=== PATIENT | female | born 1985 | race Caucasian/White ===

== ENCOUNTER 2017-11-20 08:22 | Day surgery (SDC) | payer OTHER, SELFPAY ==
[2017-11-13 13:26] VITALS: BMI 32.5
[2017-11-20] VITALS (8 sets, daily range): BP systolic 91–121; BP diastolic 44–79; PULSE 61–75; RESP 14–18; TEMP 36.3–36.6; O2SAT 94–99; BMI 32.5
--- NOTE | 2017-11-20 | PATH_ITS ---
[facility] Accession Number: [id number] . 01 Material submitted: . UTERUS AND BILATERAL FALLOPIAN TUBES . 02 Diagnosis: Supracervical Hysterectomy Specimen with Bilateral Fallopian Tubes: Proliferative endometrium with mild disorderd maturation and changes of glandular and stromal breakdown, negative for atypia. Fallopian tubes unremarkable. MRV/11/22/2017 . 02 Electronically signed: . Carrillo Casas MD, Pathologist NPI- [id number] . 01 Gross description: . Received in formalin, labeled 1. Uterus and bilateral fallopian tubes, is an upper uterine body (58 grams, 5.5 x 4.3 x 3.3 cm) with an attached fimbriated fallopian tube (length-5.5 cm, diameter-0.6 cm) and a detached fimbriated fallopian tube (length-6.2 cm, diameter-0.5 cm). The cervix and ovaries are absent. The specimen cannot be oriented as to anterior and posterior. The endometrium (average thickness-0.1 cm) is red-brown smooth and flat. The myometrium (thickness-1.7 cm) is hui-white and unremarkable. The serosa is pale hui, smooth and shiny. The fallopian tubes have red-brown smooth shiny serosa and pale hui unremarkable lumens. Section code: (A1, A2) endomyometrium; (A3, A4) endomyometrium, opposite side; (A5) attached fallopian tube, serially sectioned, office machines sales representative; (A6) attached fimbria, bivalved, entirely submitted; (A7) detached fallopian tube, serially sectioned, office machines sales representative; (A8) detached fimbria, bivalved, entirely submitted. ([id number]) /MRV . 02 Pathologist provided ICD-10: N92.0 . 02 CPT . 330147 Performed at: 01 [facility] [address] [place] [address], [place], [place] [id number] MD Keshav Isaacs MD Phone: [phone] Performed at: 02 [facility] [address] [place], [place] [id number] MD Toribio Brito MD Phone: [phone]
[2017-11-20] MEDS: LACTATED RINGERS 1,000 ML 100 ML IV ×2 (08:50→12:22)
--- NOTE | 2017-11-20 09:51 | PM.PREOP ---
Pre-operative Note Interval Note Pre-op Check: History & Physical Reviewed by Physician
[2017-11-20] MEDS: CEFAZOLIN 2 GM/100 ML FROZ.PIGGY IV (10:09)
[2017-11-20] MEDS: BUPIVACAINE 0.5% W/ EPI (PF) 30 ML VIAL INJ (12:04)
[2017-11-20] MEDS: ROPIVACAINE 0.2% PF 2 MG/ML 10ML AMP 20 ML INJ (12:05)
--- NOTE | 2017-11-20 13:32 | SUR.PHASEII ---
pt. up to void at this time, assisted pt. into w/c pt. transferred independently without problems. No bleeding noted on eliana pad. Pt. rates pain as minimal at this time, will still medicate with one oxycodone/APAP prior to d/c home.
[2017-11-20] MEDS: OXYCODONE/ACETAMINOPHEN 5/325 TABLET 1 TAB PO (13:42)
--- NOTE | 2017-11-21 15:40 | P.OP_ITS ---
Operative Date/Time/Diagnoses Date of procedure: 11/20/17 Time of procedure: 12:36 Procedure: Procedures Operation Date: 11/20/17 09:45 Actual Procedures Side Surgeon p Laparoscopic Supracervical Hysterectomy w/Bilat Salpingectomy Yeny Polo MD Indications: Menorrhagia Surgeon: Yeny Polo Benefits Counselor: Fátima Sena Anesthesia Type: General Operative Notes Findings: 8 week size anteverted uterus Normal tubes and ovaries Normal liver and gallbladder Normal appendix Closure Type: primary Specimen(s): left tube, right tube and uterus Applied: catheter (Removed at the end of the case) Estimated blood loss (mL): 100 Blood products transfused: none Procedure in detail: The patient was taken to the operating room where she was placed in the dorsal supine position. After adequate general endotracheal anesthesia was achieved, she was placed in the dorsal lithotomy position, and prepped and draped in the usual sterile fashion. A timeout was performed. A bivalve speculum was placed into the vagina and the anterior lip of the cervix grasped with a single-tooth tenaculum. The cervical os was sequentially dilated until the ZUMI uterine manipulator could pass easily into the endometrial cavity. The single-tooth tenaculum was removed from the anterior lip of the cervix, and the bivalve speculum was removed from the vagina. Attention was then turned to the abdomen where 6 mL of half percent Marcaine with epinephrine were injected in the umbilical fold. A 5 mm incision was made. The Verhees needle was placed into the peritoneal cavity, and its placement confirmed by aspiration and drop test. The Verhees needle was removed. A 5 mm trocar was placed without difficulty. 2 other incisions were made midway between the pubic symphysis and umbilicus after 5 mL of half percent Marcaine with epinephrine were injected. These were 5 mm incisions. Two 5 mm trochars were placed under direct visualization. The right tube was grasped with an atraumatic grasper. Using the plasma kinetic with settings of 40 W the mesosalpinx was cauterized and cut all the way down to the cornua of the uterus. The cornua of the uterus was then grasped with an atraumatic grasper. The utero-ovarian ligaments were cauterized and cut. The round ligament and broad ligament was cauterized and cut with plasma kinetic. Hemostasis was achieved. The bladder flap was created using the plasma kinetic with cautery and cut group home across. The uterine arteries on the right side were extensively cauterized with plasma kinetic. All of this was repeated on the left side. The remainder of the bladder flap was created using the plasma kinetic, and the bladder taken down off the lower uterine segment and cervix. Using the [place], the cervix was amputated from the uterus 2 cm above the uterosacral ligaments, after the ZUMI uterine manipulator was removed from the uterus. There was a small amount of bleeding noted from the posterior edge of the cervix, and this was cauterized for hemostasis. A sponge stick was placed into the vagina. 6 mL of half percent Marcaine with epinephrine were injected above the pubic symphysis. A 12 mm trocar was placed. An Endobag was placed through the suprapubic trocar and the uterus placed into the Endobag. The trocar was removed. The Endobag was removed from the peritoneal cavity with the uterus and tubes inside. The pelvis was copiously irrigated with warm normal saline. No bleeding was noted. The instruments were removed from the abdomen. The CO2 was allowed to escape. The suprapubic incision was closed on the fascia with 0 Vicryl. The subcutaneous layer was closed with 3 simple interrupted sutures with 3 0 Vicryl. All of the incisions were closed with 4-0 undyed Vicryl in a subcuticular fashion. Steri-Strips, 2 x 2, and op sites were placed. The moistened sponge stick was removed from the vagina. Sponge, lap, and instrument counts were correct x-2. The patient tolerated the procedure well, was taken to PACU in stable condition. Complications: none Post-operative Condition: stable Disposition: PACU Plan for aftercare: Home after recovery
== END 2017-11-20 13:46 | disposition home or self-care (01) ==
LOC: OR 08:23 → AC 12:06
PROVIDERS: Family Provider Family Medicine; PCP Family Medicine; Visit Provider Obstetrics & Gynecology
PROC: 0UT94ZL Resection of Uterus, Supracervical, Percutaneous Endoscopic Approach (ICD-10-PCS; CPT 58542; principal; 2017-11-20 09:45)
DX: N92.0 Excessive and frequent menstruation with regular cycle (principal); N94.6 Dysmenorrhea, unspecified; E06.3 Autoimmune thyroiditis; F32.9 Major depressive disorder, single episode, unspecified
CPT/HCPCS: 58542; J0690; J1100; J1885; J2250; J2405; J2704; J2795; J3010

== ENCOUNTER 2017-11-24 18:28 | Emergency (ER) | payer OTHER, SELFPAY ==
[2017-11-24 19:03] LABS: Add Manual Diff / Slide Review NO; Basophils Percent Auto 0.6 % (0-2); Eosinophils Percent Auto 1.7 % (2-4); Hematocrit 40.2 % (36-46); Hemoglobin 13.4 g/dL (12.0-16.0); Lymphocytes Percent Auto 26.7 % (25-40); Mean Corpuscular HGB Conc 33.4 % (30-36); Mean Corpuscular Hemoglobin 29.9 PG (26-34); Mean Corpuscular Volume 89.6 fL (80-100); Monocytes Percent Auto 6.9 % (3-14); Neutrophils Absolute Auto 5400 /uL (3000-5900); Neutrophils Percent Auto 64.1 % (50-75); Platelet Count 324 X10^3/uL (150-400); Red Blood Cell Count 4.48 X10^6/uL (4.0-5.2); Red Cell Distribution Width 13.2 % (11.6-14.8); White Blood Cell Count 8.5 X10^3/uL (4.5-11.0)
--- NOTE | 2017-11-24 19:07 | ED.CHESTPAIN ---
HPI - Chest Pain General Chief Complaint: Chest Pain Stated Complaint: CHEST TIGHTNESS/HEAVINESS POST SURGERY Time Seen by Provider: 11/24/17 18:36 Source: patient and family Mode of arrival: ambulatory Limitations: no limitations History of Present Illness HPI narrative: 32-year-old female presents with a chief complaint of what she describes as bubbles under her diaphragm. She complains some vague discomfort in her epigastrium and states she has pain that radiates to her left shoulder. She does not feel short of breath and is not dizzy nor weak or lightheaded. She called the on-call OB casting assistant whom recommends patient be evaluated in the emergency department. Patient is 2 days removed from a laparoscopic hysterectomy with bilateral salpingo-oophorectomy complaint: chest pain Onset (ago): day(s) Duration: intermittent and improved Pain location: substernal Severity: moderate Quality: aching Pain radiation: LUE Relieving factors: nothing Exacerbating factors: nothing Context: recent surgery Treatments prior to arrival chest pain: none Related Data Home Medications Medication Instructions Recorded Confirmed [OTC MIGRAINE] 1 tab PO DIRECTED PRN #0 03/01/16 11/20/17 levothyroxine 75 mcg tablet 75 mcg PO DAILY 10/19/17 11/20/17 Previous Rx's Medication Instructions Recorded oxycodone-acetaminophen 5 mg-325 1 tab PO Q6H PRN #14 tab 11/14/17 mg tablet oxycodone-acetaminophen [Percocet] 2 tab PO Q4-6H PRN #30 tab 11/20/17 Allergies Allergy/AdvReac Type Severity Reaction Status Date / Time sertraline [SERTRALINE] Allergy Unknown cant move Verified 11/20/17 08:41 legs Review of Systems Review of Systems All systems reviewed & are unremarkable except as noted in HPI and below Constitutional Denies chills, Denies fever(s), Denies lethargy and Denies weakness Eyes Denies change in vision, Denies eye discharge, Denies irritation and Denies loss of vision ENT Ears, Nose, Mouth, and Throat: Denies change in voice, Denies neck pain and Denies sore throat Cardiovascular Reports chest pain, Denies irregular heart rhythm, Denies lightheadedness, Denies palpitations, Denies dyspnea, Denies dyspnea on exertion and Denies orthopnea Respiratory Denies cough, Denies dyspnea, Denies dyspnea on exertion and Denies wheezing Gastrointestinal Gastrointestinal: Denies abdominal pain, Denies change in bowel habits, Denies diarrhea, Denies nausea and Denies vomiting Genitourinary Denies hematuria, Denies flank pain, Denies urinary incontinence and Denies urinary urgency Musculoskeletal Denies neck pain Integumentary/Breasts Denies pruritus, Denies erythema, Denies rash and Denies wounds Neurologic Denies confusion, Denies loss of vision and Denies weakness Psychiatric Denies anxiety, Denies confusion, Denies depression, Denies homicidal ideation and Denies suicidal ideation Endocrine Denies palpitations Hematologic/Lymphatic Denies easy bruising Allergic/Immunologic Denies wheezing PFSH Medical History Depression (Chronic) 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 Initial Vital Signs Initial Vital Signs: Vital Signs Pulse Rate 71 11/24/17 21:13 Respiratory Rate 19 11/24/17 21:13 Blood Pressure 125/73 H 11/24/17 21:13 Pulse Oximetry 99 11/24/17 21:13 Const General: cooperative and well developed Nutritional Appearance: well nourished Orientation: alert, awake, oriented x3 and not confused [facility] Head: normocephalic and atraumatic Ears: external ears normal and TM's normal bilaterally Nose: external nose normal and No nasal discharge Face and sinus: sinuses nontender, face symmetric, no sinus tenderness and No dry mucous membranes Mouth: oral mucosae normal and moist mucous membranes Teeth and gingiva: dentition normal Throat: tonsils normal and uvula midline Eyes General: appearance normal, both eyes and all related structures Eyelids: eyelids normal Conjunctivae: conjunctivae normal Sclera: sclerae normal Pupils: PERRL EOM: EOM intact bilaterally Chest Chest: normal inspection of the chest Resp Effort & Inspection: normal respiratory effort, able to speak in complete sentences, no respiratory distress and no use of accessory muscles Auscultation: clear to auscultation bilaterally, no rales, no rhonchi and no wheezes GI Inspection: non-distended Palpation: soft, no hepatosplenomegaly, No guarding, No pulsatile mass and No tender Auscultation: normal bowel sounds Other: Incisions are clean, dry and intact Back/Spine/Pelvis Back: No CVA tenderness Cervical Spine: cervical ROM normal and No pain with cervical ROM Thoracic/Lumbar Spine: thoracic and lumbar spine normal to inspection Neuro General: alert, oriented x3, gait normal and no focal motor deficits Speech: speech normal Course Orders Ordered: ED Orders 11/24/17 18:53 Complete Blood Count AUTO DIFF Stat Comprehensive Metabolic Panel Stat Lipase Stat Troponin & CK Cardiac Panel Stat 11/24/17 19:38 XR acute abdomen series Stat Discontinued Medications Sodium Chloride (Normal Saline 0.9%) 1,000 mls @ 150 mls/hr IV CONT JOHANN Last Infusion: 11/24/17 21:14 Dose: 0 mls/hr Admin: 11/24/17 19:11 Dose: 150 mls/hr Consultations Consultation #1: Upon receipt of labs and imaging I placed a call to Dr. Mathew to discuss this case. We sure the opinion that the patient's symptoms and molds likely due to the expected free air under the diaphragm after laparoscopic surgery. The patient is not tachycardic or tachypneic. She denies any shortness of breath or ongoing symptoms. The pain radiates to her left shoulder of. We agree to discharge the patient home full were follow up on Monday as planned Vital Signs - 8 hr 11/24/17 21:13 Pulse Rate 71 Respiratory Rate 19 Blood Pressure 125/73 H Pulse Oximetry 99 MDM - Chest Pain Medical Records Data Attestation: I reviewed the patient's medical records. Lab Data Attestation: I reviewed the patient's lab results. Result diagrams: 11/24/17 18:53 11/24/17 18:53 Lab Results 11/24/17 11/24/17 Range/Units 18:53 18:53 WBC 8.5 (4.5-11.0) X10^3/uL RBC 4.48 (4.0-5.2) X10^6/uL Hgb 13.4 (12.0-16.0) g/dL Hct 40.2 (36-46) % MCV 89.6 (80-100) fL MCH 29.9 (26-34) PG MCHC 33.4 (30-36) % RDW 13.2 (11.6-14.8) % Plt Count 324 (150-400) X10^3/uL Neut % (Auto) 64.1 (50-75) % Lymph % (Auto) 26.7 (25-40) % [place] % (Auto) 6.9 (3-14) % Eos % (Auto) 1.7 L (2-4) % Baso % (Auto) 0.6 (0-2) % Neut # (Auto) 5400 (4709-9094) /uL Sodium 140 (137-145) mmol/L Potassium 4.6 (3.4-5.1) mmol/L Chloride 100 (98-107) mmol/L Carbon Dioxide 31 (22-32) mmol/L BUN 13 (7-17) mg/dL Creatinine 0.70 (0.52-1.04) mg/dL Estimated GFR > 60.0 (>60) mL/min BUN/Creatinine Ratio 18.6 (6-22) Glucose 108 H (70-100) mg/dL Calcium 9.5 (8.4-10.2) mg/dL Total Bilirubin 0.6 (0.2-1.3) mg/dL AST 108 H (14-36) IU/L ALT 112 H (9-52) IU/L Alkaline Phosphatase 78 (38-126) U/L Total Creatine Kinase 173 H (30-135) U/L CK-MB (CK-2) < 0.22 (<2.37) ng/mL CK-MB (CK-2) Rel Index 0.1 L (1.5-5.0) % Troponin I < 0.012 (0.01-0.034) ng/mL Total Protein 7.8 (6.3-8.2) g/dL Albumin 4.5 (3.5-5.0) g/dL Globulin 3.3 (1.7-4.1) g/dL Albumin/Globulin Ratio 1.4 (1.0-2.8) Lipase 53 (23-300) U/L Imaging Data Abdominal x-ray: Radiologist's impression: PROCEDURE: XR ACUTE ABDOMEN SERIES INDICATIONS: Abdominal pain TECHNIQUE: One view chest and two views of the abdomen were acquired. COMPARISON: None. FINDINGS: Surgical changes and devices: None. Chest: Lungs are clear. Heart size is normal. No pleural effusions. Abdomen: There is free air under the diaphragms. Bowel gas pattern is normal. No suspicious calcifications. Visualized solid organ contours appear normal. Bones: No suspicious bony lesions. IMPRESSION: Free air under the diaphragm is presumably related to recent surgery. Recommend clinical correlation. Dictated by: Noel Alvarez M.D. on 11/24/2017 at 20:01 Approved by: Noel Alvarez M.D. on 11/24/2017 at 20:09 Discharge Plan Departure Patient Disposition: Home, Self-Care Clinical Impression: Abdominal pain, acute, epigastric Discharge Date/Time: 11/24/17 21:16 Interventions: ED Discharge Assessment Last Done: 11/24/17 21:13 Instructions: DI for Epigastric Pain Activity Restrictions/Additional Instructions: *You have been diagnosed with [ acute epigastric pain and atypical chest pain ] *What to do: *Take medications as directed *Follow up with your OB Gyne physician in 2-3 days, call for an appointment. Let them know you were seen in the Emergency Department and that we ask that you be seen in follow up *Return to ER if you should have any new, worsening or concerning symptoms, such as [worsening chest pain, shortness of breath, worsening abdominal pain, fever over 101 F, other bothersome symptoms ] Prescriptions: No Action [OTC MIGRAINE] 1 tab PO DIRECTED PRN (Reason: Migraine Headache) Qty: 0 RF: 0 oxycodone-acetaminophen [Percocet] 5-325 mg tablet 1 tab PO Q6H PRN (Reason: pain) Qty: 14 RF: 0 levothyroxine 75 mcg tablet 75 mcg PO DAILY RF: 0 oxycodone-acetaminophen [Percocet] 5-325 mg tablet 2 tab PO Q4-6H PRN (Reason: pain) Qty: 30 RF: 0 Referrals: Yeny Polo MD [Physician] - Bibi Clifton MD [Primary Care Provider] -
[2017-11-24] MEDS: SODIUM CHLORIDE 0.9% 1,000 ML 150 ML IV (19:11)
[2017-11-24 19:18] LABS: Alanine Aminotransferase 112 IU/L (9-52); Albumin 4.5 g/dL (3.5-5.0); Albumin Globulin Ratio 1.4 (1.0-2.8); Alkaline Phosphatase 78 U/L (38-126); Aspartate Aminotransferase 108 IU/L (14-36); BUN Creatinine Ratio 18.6 (6-22); Bilirubin Total 0.6 mg/dL (0.2-1.3); Blood Urea Nitrogen 13 mg/dL (7-17); Calcium 9.5 mg/dL (8.4-10.2); Carbon Dioxide 31 mmol/L (22-32); Chloride 100 mmol/L (98-107); Creatine Kinase 173 U/L (30-135); Estimated Glomerular Filt Rate > 60.0 mL/min (>60); Globulin 3.3 g/dL (1.7-4.1); Glucose 108 mg/dL (70-100); Lipase 53 U/L (23-300); Sodium 140 mmol/L (137-145); Total Protein 7.8 g/dL (6.3-8.2)
[2017-11-24 19:20] LABS: HEMOLYSIS 85 (0-50)
[2017-11-24 19:21] LABS: Potassium 4.6 mmol/L (3.4-5.1)
--- NOTE | 2017-11-24 19:38 | DI.RAD.S_ITS ---
PROCEDURE: XR ACUTE ABDOMEN SERIES INDICATIONS: Abdominal pain TECHNIQUE: One view chest and two views of the abdomen were acquired. COMPARISON: None. FINDINGS: Surgical changes and devices: None. Chest: Lungs are clear. Heart size is normal. No pleural effusions. Abdomen: There is free air under the diaphragms. Bowel gas pattern is normal. No suspicious calcifications. Visualized solid organ contours appear normal. Bones: No suspicious bony lesions. IMPRESSION: Free air under the diaphragm is presumably related to recent surgery. Recommend clinical correlation. Dictated by: Noel Alvarez M.D. on 11/24/2017 at 20:01 Approved by: Noel Alvarez M.D. on 11/24/2017 at 20:09
[2017-11-24 19:39] LABS: Troponin I < 0.012 ng/mL (0.01-0.034)
[2017-11-24 20:00] LABS: CKMB % Relative Index 0.1 % (1.5-5.0); Creatine Kinase MB < 0.22 ng/mL (<2.37)
[2017-11-24 21:13] VITALS: BP 125/73; PULSE 71; RESP 19; O2SAT 99
== END 2017-11-24 21:16 | disposition home or self-care (01) ==
PROVIDERS: Emergency Provider Emergency Medicine; Family Provider Family Medicine; PCP Family Medicine
DX: R10.13 Epigastric pain (principal)
CPT/HCPCS: 36591; 74022; 80053; 82550; 82553; 83690; 84484; 85025; 93005; 93041; 96360; 96361; 99283; 99284

== ENCOUNTER → 2018-03-09 11:02 | Outpatient (CLI) | payer OTHER, SELFPAY ==
--- NOTE | 2018-03-09 | DI.RAD.S_ITS ---
PROCEDURE: XR CHEST 2V INDICATIONS: LOWER MIDDLE ANTERIOR CHEST DISCOMFORT TECHNIQUE: 2 views of the chest were acquired. COMPARISON: None. FINDINGS: Surgical changes and devices: None. Lungs and pleura: No pleural effusions or pneumothorax. Lungs are clear. Mediastinum: Mediastinal contours are normal. Heart size is normal. Bones and chest wall: No suspicious bony abnormalities. Soft tissues appear unremarkable. IMPRESSION: Normal for age, source of current symptoms is not seen. Dictated by: Esteban Bazan M.D. on 03/09/2018 at 11:51 Approved by: Esteban Bazan M.D. on 03/09/2018 at 11:51
== END ==
PROVIDERS: PCP Family Medicine; Visit Provider Family Medicine
DX: R07.89 Other chest pain (principal)
CPT/HCPCS: 71046

== ENCOUNTER 2019-01-25 11:26 | Emergency (ER) | payer OTHER, SELFPAY ==
[2019-01-25 11:57] VITALS: BP 142/90; PULSE 62; RESP 20; TEMP 36.4; O2SAT 99; BMI 31.9
[2019-01-25 12:16] LABS: Add Manual Diff / Slide Review NO; Basophils Absolute Auto 0 /uL (0-100); Basophils Percent Auto 0.6 % (0-2); Eosinophils Absolute Auto 100 /uL (0-450); Eosinophils Percent Auto 0.9 % (2-4); Hemoglobin 14.2 g/dL (12.0-16.0); Lymphocytes Absolute Auto 1900 /uL (1100-4500); Lymphocytes Percent Auto 29.8 % (25-40); Mean Corpuscular HGB Conc 34.5 % (30-36); Mean Corpuscular Hemoglobin 30.3 PG (26-34); Mean Corpuscular Volume 87.7 fL (80-100); Monocytes Absolute Auto 400 /uL (0-900); Monocytes Percent Auto 5.9 % (3-14); Neutrophils Absolute Auto 4000 /uL (1500-7000); Neutrophils Percent Auto 62.8 % (50-75); Platelet Count 262 X10^3/uL (150-400); Red Blood Cell Count 4.68 X10^6/uL (4.0-5.2); Red Cell Distribution Width 13.6 % (11.6-14.8); White Blood Cell Count 6.4 X10^3/uL (4.5-11.0)
[2019-01-25 12:25] LABS: PTT Partial Thromboplastin Tim 35 SECONDS (26.4-36.2); Prothrombin Time 11.5 SECONDS (10.1-12.7)
[2019-01-25 12:26] LABS: Alanine Aminotransferase 31 IU/L (9-52); Albumin 4.5 g/dL (3.5-5.0); Albumin Globulin Ratio 1.4 (1.0-2.8); Alkaline Phosphatase 62 U/L (38-126); Aspartate Aminotransferase 25 IU/L (14-36); BUN Creatinine Ratio 15.7 (6-22); Bilirubin Total 0.4 mg/dL (0.2-1.3); Blood Urea Nitrogen 11 mg/dL (7-17); Calcium 9.5 mg/dL (8.4-10.2); Carbon Dioxide 25 mmol/L (22-32); Chloride 104 mmol/L (98-107); Creatine Kinase 94 U/L (30-135); Estimated Glomerular Filt Rate > 60.0 mL/min (>60); Globulin 3.2 g/dL (1.7-4.1); Glucose 94 mg/dL (70-100); HEMOLYSIS < 15 (0-50); Lipase 101 U/L (23-300); Potassium 4.3 mmol/L (3.4-5.1); Sodium 141 mmol/L (137-145); Total Protein 7.7 g/dL (6.3-8.2)
[2019-01-25 12:37] LABS: Troponin I < 0.012 ng/mL (0.01-0.034)
--- NOTE | 2019-01-25 18:54 | ED.CHESTPAIN ---
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) History of dysmenorrhea (Chronic ~2017) Menorrhagia (Chronic ~2017) Pelvic pain (Chronic) Surgical History (Updated 11/28/17 @ 15:19 by Maureen Bella LPN) History of endometrial ablation (Resolved ~2013) History of hysterectomy, supracervical (Acute) History of third molar tooth extraction (Resolved) Status post left foot surgery (Resolved 2002) Status post tubal ligation (Resolved) Social History household members: spouse Smoking Status: Never smoker alcohol intake: never Social History household members: spouse Smoking Status: Never smoker alcohol intake: never Exam Initial Vital Signs Initial Vital Signs: Vital Signs Temperature 97.5 F L 01/25/19 11:57 Pulse Rate 62 01/25/19 11:57 Respiratory Rate 20 01/25/19 11:57 Blood Pressure 142/90 H 01/25/19 11:57 Pulse Oximetry 99 01/25/19 11:57 Course Orders Ordered: ED Orders 01/25/19 11:56 Complete Blood Count AUTO DIFF Stat Comprehensive Metabolic Panel Stat Lipase Stat Partial Thromboplastin Time Stat Prothrombin Time INR Stat Troponin & CK Cardiac Panel Stat 01/25/19 11:59 EKG-12 Lead Stat Vital Signs Vital signs: Vital Signs - 8 hr 01/25/19 11:57 Temperature 97.5 F L Pulse Rate 62 Respiratory Rate 20 Blood Pressure 142/90 H Pulse Oximetry 99 MDM - Chest Pain Lab Data Result diagrams: 01/25/19 11:56 01/25/19 11:56 Labs: Lab Results 01/25/19 01/25/19 01/25/19 Range/Units 11:56 11:56 11:56 WBC 6.4 (4.5-11.0) X10^3/uL RBC 4.68 (4.0-5.2) X10^6/uL Hgb 14.2 (12.0-16.0) g/dL Hct 41.0 (36-46) % MCV 87.7 (80-100) fL MCH 30.3 (26-34) PG MCHC 34.5 (30-36) % RDW 13.6 (11.6-14.8) % Plt Count 262 (150-400) X10^3/uL Neut % (Auto) 62.8 (50-75) % Lymph % (Auto) 29.8 (25-40) % [place] % (Auto) 5.9 (3-14) % Eos % (Auto) 0.9 L (2-4) % Baso % (Auto) 0.6 (0-2) % Neut # (Auto) 4000 (2582-3012) /uL Lymph # (Auto) 1900 (1272-1327) /uL [place] # (Auto) 400 (0-900) /uL Eos # (Auto) 100 (0-450) /uL Baso # (Auto) 0 (0-100) /uL PT 11.5 (10.1-12.7) SECONDS INR 1.0 (0.9-1.3) APTT 35 (26.4-36.2) SECONDS Sodium 141 (137-145) mmol/L Potassium 4.3 (3.4-5.1) mmol/L Chloride 104 (98-107) mmol/L Carbon Dioxide 25 (22-32) mmol/L BUN 11 (7-17) mg/dL Creatinine 0.70 (0.52-1.04) mg/dL Estimated GFR > 60.0 (>60) mL/min BUN/Creatinine Ratio 15.7 (6-22) Glucose 94 (70-100) mg/dL Calcium 9.5 (8.4-10.2) mg/dL Total Bilirubin 0.4 (0.2-1.3) mg/dL AST 25 (14-36) IU/L ALT 31 (9-52) IU/L Alkaline Phosphatase 62 (38-126) U/L Total Creatine Kinase 94 (30-135) U/L CK-MB (CK-2) TNP CK-MB (CK-2) Rel Index TNP Troponin I < 0.012 (0.01-0.034) ng/mL Total Protein 7.7 (6.3-8.2) g/dL Albumin 4.5 (3.5-5.0) g/dL Globulin 3.2 (1.7-4.1) g/dL Albumin/Globulin Ratio 1.4 (1.0-2.8) Lipase 101 (23-300) U/L ECG Data Attestation: I personally reviewed and interpreted this ECG as follows: Prior ECG tracings: available for review Interpretation: Sinus bradycardia to sinus rhythm a rate of 59 P are 146 QRS 82 and QTC of 428. No ST changes appreciated. Patient has prior from 11/24/2017 which appears similar MDM Narrative Medical decision making narrative: Patient EKG and labs reviewed. Patient left prior to being seen. Discharge Plan Departure Patient Disposition: Left Against Medical Advice Clinical Impression: Left against medical advice Discharge Date/Time: 01/25/19 12:28 Prescriptions: No Action levothyroxine 75 mcg tablet 75 mcg PO DAILY RF: 0 citalopram 10 mg tablet 10 mg PO DAILY RF: 0 Stand Alone Forms: Against Medical Advice
== END 2019-01-25 12:28 | disposition left against medical advice (07) ==
PROVIDERS: Emergency Provider Emergency Medicine; Family Provider Family Medicine; PCP Family Medicine
DX: R07.9 Chest pain, unspecified (principal)
CPT/HCPCS: 36415; 80053; 82550; 83690; 84484; 85025; 85610; 85730; 93005; 93010; 99282

== ENCOUNTER → 2020-09-04 15:20 | Outpatient (CLI) | payer OTHER, SELFPAY ==
[2020-09-04 16:26] LABS: Add Manual Diff / Slide Review NO; Basophils Absolute Auto 0 /uL (0-100); Basophils Percent Auto 0.6 % (0-2); Eosinophils Absolute Auto 100 /uL (0-450); Eosinophils Percent Auto 0.9 % (2-4); Hematocrit 44.3 % (36-46); Hemoglobin 14.9 g/dL (12.0-16.0); Lymphocytes Absolute Auto 2300 /uL (1100-4500); Lymphocytes Percent Auto 28.2 % (25-40); Mean Corpuscular HGB Conc 33.5 % (30-36); Mean Corpuscular Hemoglobin 30.1 PG (26-34); Mean Corpuscular Volume 89.7 fL (80-100); Monocytes Absolute Auto 500 /uL (0-900); Monocytes Percent Auto 6.6 % (3-14); Neutrophils Absolute Auto 5200 /uL (1500-7000); Neutrophils Percent Auto 63.7 % (50-75); Platelet Count 296 X10^3/uL (150-400); Red Blood Cell Count 4.94 X10^6/uL (4.0-5.2); Red Cell Distribution Width 13.1 % (11.6-14.8); White Blood Cell Count 8.2 X10^3/uL (4.5-11.0)
[2020-09-04 16:43] LABS: Alanine Aminotransferase 54 IU/L (<35); Albumin 4.8 g/dL (3.5-5.0); Albumin Globulin Ratio 1.4 (1.0-2.8); Alkaline Phosphatase 72 U/L (38-126); Aspartate Aminotransferase 38 IU/L (14-36); BUN Creatinine Ratio 22.9 (6-22); Bilirubin Total 0.2 mg/dL (0.2-1.3); Blood Urea Nitrogen 16 mg/dL (7-17); Calcium 9.8 mg/dL (8.4-10.2); Carbon Dioxide 25 mmol/L (22-32); Chloride 105 mmol/L (98-107); Estimated Glomerular Filt Rate > 60.0 mL/min (>60); Globulin 3.4 g/dL (1.7-4.1); Glucose 91 mg/dL (70-100); HEMOLYSIS < 15 (0-50); Sodium 140 mmol/L (137-145); Total Protein 8.2 g/dL (6.3-8.2)
== END ==
PROVIDERS: Family Provider Family Medicine; PCP Family Medicine; Referring Provider Nurse Practitioner Family; Visit Provider Nurse Practitioner Family
DX: R10.31 Right lower quadrant pain (principal)
CPT/HCPCS: 36415; 80053; 85025

== ENCOUNTER → 2020-09-09 08:53 | Outpatient (CLI) | payer OTHER, SELFPAY ==
--- NOTE | 2020-09-09 09:44 | DI.CT.S_ITS ---
PROCEDURE: CT ABDOMEN PELVIS W CON INDICATIONS: Right lower quadrant pain TECHNIQUE: After the administration of oral and intravenous contrast, 5 mm thick sections acquired from the diaphragms to the symphysis. 5 mm thick coronal and sagittal reformats were performed. For radiation dose reduction, the following was used: automated exposure control, adjustment of mA and/or kV according to patient size. COMPARISON: [facility], CT, ABDOMEN/PELVIS WITH CONTRAST, 08/04/2017, 2:57. FINDINGS: Image quality: Excellent. ABDOMEN: Lung bases: Lung bases are clear. Heart size is normal. Solid organs: Liver is normal in size and enhancement. Gallbladder is within normal limits. Biliary system is non-dilated. Pancreas enhances normally. Spleen is normal in size and enhancement. No adrenal nodules. Kidneys are normal in size and enhancement, without hydronephrosis. Peritoneum and bowel: Stomach, small bowel, and colon loops are normal in caliber and wall thickness. No free fluid or air. Normal appendix. Nodes and vessels: No retroperitoneal or mesenteric adenopathy. Aorta and inferior vena cava are normal in caliber. Miscellaneous: No ventral hernias. PELVIS: Genitourinary: Bladder wall thickness is normal. Miscellaneous: No inguinal hernias or adenopathy. Bones: No suspicious bony lesions. No vertebral body compression fractures. IMPRESSION: 1. No acute process. 2. Normal appendix. Dictated by: Melisa Larson M.D. on 09/09/2020 at 10:43 Approved by: Melisa Larson M.D. on 09/09/2020 at 10:44
== END ==
PROVIDERS: Family Provider Family Medicine; PCP Family Medicine; Referring Provider Family Medicine; Visit Provider Nurse Practitioner Family
DX: R10.31 Right lower quadrant pain (principal)
CPT/HCPCS: 74177

== ENCOUNTER → 2021-02-09 16:52 | Outpatient (CLI) | payer OTHER, SELFPAY ==
[2021-02-09 18:01] LABS: Add Manual Diff / Slide Review NO; Basophils Absolute Auto 0 /uL (0-100); Basophils Percent Auto 0.4 % (0-2); Eosinophils Absolute Auto 100 /uL (0-450); Eosinophils Percent Auto 0.8 % (2-4); Hematocrit 44.8 % (36-46); Hemoglobin 15.3 g/dL (12.0-16.0); Lymphocytes Absolute Auto 2700 /uL (1100-4500); Lymphocytes Percent Auto 24.9 % (25-40); Mean Corpuscular HGB Conc 34.1 % (30-36); Mean Corpuscular Hemoglobin 30.5 PG (26-34); Mean Corpuscular Volume 89.3 fL (80-100); Monocytes Absolute Auto 700 /uL (0-900); Monocytes Percent Auto 6.3 % (3-14); Neutrophils Absolute Auto 7300 /uL (1500-7000); Neutrophils Percent Auto 67.6 % (50-75); Platelet Count 301 X10^3/uL (150-400); Red Blood Cell Count 5.01 X10^6/uL (4.0-5.2); Red Cell Distribution Width 13.1 % (11.6-14.8); White Blood Cell Count 10.8 X10^3/uL (4.5-11.0)
[2021-02-09 18:11] LABS: Alanine Aminotransferase 90 IU/L (<35); Albumin 4.9 g/dL (3.5-5.0); Albumin Globulin Ratio 1.3 (1.0-2.8); Alkaline Phosphatase 83 U/L (38-126); Aspartate Aminotransferase 48 IU/L (14-36); BUN Creatinine Ratio 23.1 (6-22); Bilirubin Total 0.3 mg/dL (0.2-1.3); Blood Urea Nitrogen 15 mg/dL (7-17); Calcium 10.1 mg/dL (8.4-10.2); Carbon Dioxide 27 mmol/L (22-32); Chloride 102 mmol/L (98-107); Estimated Glomerular Filt Rate > 60.0 mL/min (>60); Globulin 3.7 g/dL (1.7-4.1); Glucose 107 mg/dL (70-100); HEMOLYSIS 19 (0-50); Hemoglobin A1C% w Est Avg Glu 6.4 % (4.0-6.0); Potassium 3.9 mmol/L (3.4-5.1); Sodium 139 mmol/L (137-145); Total Protein 8.6 g/dL (6.3-8.2)
[2021-02-09 18:40] LABS: TSH w/ Reflex to FT4 2.27 uIU/mL (0.47-4.68)
== END ==
PROVIDERS: Family Provider Family Medicine; PCP Family Medicine; Referring Provider Family Medicine; Visit Provider Family Medicine
DX: E03.9 Hypothyroidism, unspecified (principal); R73.9 Hyperglycemia, unspecified; R41.1 Anterograde amnesia
CPT/HCPCS: 36415; 80053; 83036; 84443; 85025

== ENCOUNTER → 2021-02-15 07:06 | Outpatient (CLI) | payer OTHER, SELFPAY ==
--- NOTE | 2021-02-15 | DI.US.S_ITS ---
PROCEDURE: US ABDOMEN LIMITED INDICATIONS: ELEVATED LFTS TECHNIQUE: Real-time scanning was performed of the abdominal and retroperitoneal organs, with image documentation. COMPARISON: [facility], CT, CT ABDOMEN PELVIS W CON, 09/09/2020, 9:56. FINDINGS: Liver: Liver is normal in size and homogeneous in echotexture. Gallbladder: 1.3 cm mobile stone is seen in portion of gallbladder lumen. Sludge material is also noted within dependent portion of gallbladder lumen. No gallbladder wall thickening or pericholecystic fluid. No sonographic Liz sign. Biliary ducts: Intrahepatic bile ducts are non-dilated. Extrahepatic bile duct caliber measures 4.9 mm. Normal is 6-7 mm or less in diameter, or 10 mm or less post-cholecystectomy. Pancreas: Visualized portions of the pancreas are sonographically normal. IMPRESSION: Cholelithiasis without evidence of acute cholecystitis. No biliary ductal dilatation. Liver is normal in size and echotexture. Dictated by: Heri Ashley M.D. on 02/15/2021 at 8:51 Approved by: Heri Ashley M.D. on 02/15/2021 at 8:52
== END ==
PROVIDERS: Family Provider Family Medicine; PCP Family Medicine; Referring Provider Family Medicine; Visit Provider Family Medicine
DX: R74.01 Elevation of levels of liver transaminase levels (principal); K80.20 Calculus of gallbladder without cholecystitis without obstruction
CPT/HCPCS: 76705

== ENCOUNTER → 2021-03-08 10:03 | Outpatient (CLI) | payer OTHER, SELFPAY ==
[2021-03-08 14:32] LABS: COVID19 -Nasal RAPID Negative (Negative)
== END ==
PROVIDERS: Family Provider Family Medicine; PCP Family Medicine; Referring Provider Surgery; Visit Provider Surgery
DX: Z20.822 Contact with and (suspected) exposure to COVID-19 (principal); Z01.812 Encounter for preprocedural laboratory examination
CPT/HCPCS: 87635; C9803

== ENCOUNTER 2021-03-09 13:41 | Day surgery (SDC) | payer OTHER, SELFPAY ==
[2021-03-04 12:34] VITALS: BMI 33.5
[2021-03-09] VITALS (8 sets, daily range): BP systolic 118–140; BP diastolic 62–84; PULSE 64–97; RESP 14–22; TEMP 36.2–36.8; O2SAT 96–98; BMI 33.5
--- NOTE | 2021-03-09 | PATH_ITS ---
[facility] Accession Number: [id number] . 01 Material submitted: . gallbladder - GALLBLADDER . 01 Clinical history: . LAP EDIE . 02 Diagnosis: Gallbladder, Cholecystectomy: Chronic cholecystitis with cholelithiasis and cholesterolosis. Negative for dysplasia and malignancy. [facility] 03/12/2021 1419 Local . 02 Electronically signed: . Cassie Couch MD, Pathologist NPI- [id number] . 01 Gross description: . The specimen is received in formalin, labeled gallbladder and consists of a 5.0 x 2.5 x 2.0 cm previously disrupted gallbladder with a 0.2 cm in diameter cystic duct. The serosa is hui-pink to pink-purple and wrinkled. Opening reveals minimal green viscous bile with a 1.0 x 1.0 x 0.8 cm hui-green bosselated cholelith. The mucosa is hui-green with cholesterolosis. The wall thickness measures 0.2 cm. [employer] sections are submitted, to include the en face cystic duct margin, in cassette A1. ([id number]) /MRV 03/10/2021 1159 Local . 02 Pathologist provided ICD-10: K80.50 . 02 CPT . 696605 Performed at: 01 [facility] Cytology [address], [place], [place] [id number] MD Keshav Isaacs MD Phone: [phone] Performed at: 02 [facility] [address] [place], [place] [id number] MD Cassie Couch MD Phone: [phone]
[2021-03-09] MEDS: SCOPOLAMINE 1 PATCH TOP (13:59)
[2021-03-09] MEDS: GABAPENTIN 300 MG CAPSULE PO (14:00)
[2021-03-09] MEDS: LACTATED RINGERS 1,000 ML 42 ML IV (14:00)
[2021-03-09] MEDS: ACETAMINOPHEN 325 MG TABLET 975 MG PO (14:00)
--- NOTE | 2021-03-09 14:57 | PM.PREOP ---
Pre-operative Note Interval Note History & Physical reviewed/Exam performed by Physician: Yes Changes to H&P: No
--- NOTE | 2021-03-09 14:57 | PM.OP.1 ---
Operative Date/Time/Diagnoses Date of procedure: 03/09/21 Time of procedure: 14:57 Pre-op diagnosis: bilateral inguinal hernia Post-op diagnosis: same Procedure & Clinicians Procedure: open bilateral inguinal hernia repair Same procedure as scheduled: Yes Indications: bilateral inguinal hernia reducible Surgeon: Kye Del Rosario Yes if Unassisted: Yes Anesthesia Type: General Operative Notes Findings: large bilateral direct floor defects, no indirect hernias Specimen(s): none sent Estimated Blood Loss (mL): 20 Procedure in detail: The patient was placed supine on the table and bilateral lower extremity compression devices were applied. Anesthesia was induced they were intubated with an LMA and received 2g of Ancef. A time-out was performed. They were prepped and draped in sterile fashion. The left external inguinal ring and the anterior superior iliac crest were identified and marked. 1 finger breath above the inguinal ligament the skin was infiltrated with 0.25% bupivacaine. The skin incision was made here and the subcutaneous tissues were divided with electrocautery exposing the external oblique aponeurosis which was then opened along the direction of its fibers. Using blunt dissection the internal oblique aporneurosis was from the external oblique upper leaflet to identify the iliohypogastric nerve. Using a kittner the cord was carefully dissected away from the inguinal canal adjacent to the pubic tubercle. The cord including the vas deferens, testicular bloody supply, ilioguinal and genital nerve were encircled with a Coxsackie drain. A large direct floor defect was identified and it was reduced into the abdomen. A plug of mesh was then placed into the direct floor defect and the internal oblique aporneuorsis was approximated to the inguinal ligament with Ethibond suture to reapproximate the floor over the plug.. The cremasteric fibers surrounding the cord were divided using electrocautery adjacent to the internal ring.. The vas deferens and the testicular vessels were preserved and protected. There was a small indirect hernia on the anterior medial aspect of the cord which was skeletonized away from the vas deferens and testicular blood supply. There was no evidence of a indirect hernia. I selected a 7x 15 cm lightweight Pro Loop hernia mesh. The inferior medial aspect of the mesh was anchored to insertion of the rectus muscle to the pubic tubercle such that there was approximately 2 cm of tubercle overlap with Ethibond and then was run continuously along the inferior edge of the mesh to the shelving edge of the inguinal ligament. Interrupted 3 0 Vicryl suture was used to anchor the superior aspect of the mesh to the conjoined tendon in several places. The tails were then reapproximated loosely around the spermatic cord. The tails of the mesh were then tucked under the external oblique aponeurosis. The repair was checked for hemostasis. The wound was irrigated with sterile saline. The external oblique aponeurosis was reapproximated in a running fashion using 3 0 Vicryl. The subcutaneous tissues were reapproximated with 3 0 Vicryl skin closed with 4 0 Monocryl followed by the application of Dermabond. The right inguinal hernia was then performed in the same manner. On the right side there was also a large direct floor defect no indirect hernia. At the end of the operation I ensured that both testicles were within the scrotum. The sponge instrument count at the end operation was correct. The patient emerged from anesthesia was extubated and transferred to the postoperative care unit in stable condition. A total of 30 ml of of 0.25% bupivicaine was used to infiltrate the skin. Complications: none Post-operative Condition: stable Disposition: same day surgery
[2021-03-09] MEDS: CEFAZOLIN 1 GM VIAL 2 GM IV (15:30)
--- NOTE | 2021-03-09 15:42 | SUR.OPER ---
Supine on padded OR bed, head on pillow, safety belt at thigh, left arm padded and tucked at side. Right arm secured on padded arm board <90 degrees abduction. Legs uncrossed. Padded footboard in place. Tape over blanket to secure lower legs.
[2021-03-09] MEDS: BUPIVACAINE 0.25% (PF) VIAL 30 ML INJ (16:05)
--- NOTE | 2021-03-09 16:28 | P.OP_ITS ---
Operative Date/Time/Diagnoses Date of procedure: 03/09/21 Time of procedure: 16:30 Pre-op diagnosis: biliary colic Post-op diagnosis: same Procedure & Clinicians Procedure: Laparoscopic cholecystectomy Same procedure as scheduled: Yes Indications: Biliary colic Surgeon: Kye Bray Anesthesia Type: General Operative Notes Findings: Critical view of safety. No acute cholecystitis Specimen(s): other (Gallbladder) Estimated Blood Loss (mL): 20 Procedure in detail: The patient was placed supine on the table and bilateral lo wer extremity compression devices were applied. Anesthesia was induced they were intubated with an endotracheal tube and received 2g of Ancef. A time-out was performed. They were prepped and draped in sterile fashion. An infraumbilical incision was made, the umbilical stalk was elevated and the fascia was sharply incised entering the abdomen atraumatically. A blunt tip 12mm balloon trocar was then inserted, pneumoperitoneum was established and inspection of the abdomen demonstrated no evidence of injury. They were placed head up and right side up and then a 11 mm port was placed high in the epigastrium and two 5mm in the right upper quadrant. The gallbladder was grasped by the fundus and retracted over the liver and retracted laterally by the infundibulum. The gallbladder was grossly normal in its appearance. Using electrocautery the lateral plane between the gallbladder and the liver was opened towards the fundus. The gallbladder was then retracted laterally and the medial plane was developed in the same manner. With the gallbladder mobilized the bottom of the cystic plate was visualized. The hepatocystic triangle was meticulosly skeletonized of all fat and fibrous tissue from both the front and the back. Only two structures were then clearly seen entering the gallbladder the cystic duct and the cystic artery. With the critical view of safety fully established the cystic duct was clipped twice proximally and once distally using the 10 mm Weck hemo clip applied under direct visualization and then sharply divided. The cystic artery was divided in the same fashion. The gallbladder was removed from the liver bed using electro cautery. The liver bed was then inspected for hemostasis and this was achieved. The abdomen was irrigated with sterile saline and inspection was made that showed the clips in good position. The specimen was removed using Endo-Catch. The abdomen was desufflated. The umbilical fascia was closed with 0 Vicryl in a [id number] fashion under direct visualization. Skin incisions were irrigated and closed with 4-0 Monocryl. 30 ml of 0.25% bupivacaine was infiltrated into the subcutaneous tissue of the incisions. The wounds were sealed with Dermabond. Patient emerged from anesthesia was extubated and transferred to recovery in stable condition. The sponge and instrument count at the end of the operation was correct. Complications: none Post-operative Condition: stable Disposition: same day surgery
[2021-03-09] MEDS: HALOPERIDOL 5 MG/ML VIAL 1 MG IV (16:41)
[2021-03-09] MEDS: fentaNYL 100 MCG/2 ML INJ IV ×2 (16:55→17:31)
--- NOTE | 2021-03-09 16:57 | SUR.PHASEI ---
Pt arrives to pacu in bed, airway intact, resprations unassisted. Report from Dr Ornelas.
[2021-03-09] MEDS: LACTATED RINGERS 1,000 ML 120 ML IV (17:01)
== END 2021-03-09 18:13 | disposition home or self-care (01) ==
PROVIDERS: Family Provider Family Medicine; PCP Family Medicine; Referring Provider Surgery; Visit Provider Surgery
PROC: 0FT44ZZ Resection of Gallbladder, Percutaneous Endoscopic Approach (ICD-10-PCS; CPT 47562; principal; 2021-03-09 14:45)
DX: K80.10 Calculus of gallbladder with chronic cholecystitis without obstruction (principal); E66.9 Obesity, unspecified; E11.9 Type 2 diabetes mellitus without complications; E03.9 Hypothyroidism, unspecified; F41.9 Anxiety disorder, unspecified; K21.9 Gastro-esophageal reflux disease without esophagitis; Z79.84 Long term (current) use of oral hypoglycemic drugs; Z68.33 Body mass index [BMI] 33.0-33.9, adult
CPT/HCPCS: 47562; 82962; J0330; J0690; J1630; J1885; J2250; J2405; J2704; J3010

== ENCOUNTER 2021-09-06 14:19 | Emergency (ER) | payer OTHER, SELFPAY ==
[2021-09-06 14:30] VITALS: BP 140/90; PULSE 83; RESP 16; TEMP 36.7; O2SAT 97; BMI 31.4
[2021-09-06 14:51] LABS: Appearance Urine UA CLEAR; Bilirubin Urine UA NEGATIVE (NEGATIVE); Color Urine UA YELLOW; Glucose Urine UA NEGATIVE (Negative); Ketones Urine UA NEGATIVE (NEGATIVE); Leukocyte Esterase Urine UA NEGATIVE (NEGATIVE); Nitrite Urine UA NEGATIVE (Negative); Occult Blood Urine UA NEGATIVE (Negative); Protein Urine UA NEGATIVE (Negative)
[2021-09-06 14:52] LABS: pH Urine UA 7.5 (4.5-8.0)
[2021-09-06 14:54] LABS: Add Manual Diff / Slide Review NO; Basophils Absolute Auto 0 /uL (0-100); Basophils Percent Auto 0.6 % (0-2); Eosinophils Absolute Auto 400 /uL (0-450); Hematocrit 43.1 % (36-46); Hemoglobin 14.4 g/dL (12.0-16.0); Lymphocytes Absolute Auto 2200 /uL (1100-4500); Lymphocytes Percent Auto 31.4 % (25-40); Mean Corpuscular HGB Conc 33.4 % (30-36); Mean Corpuscular Hemoglobin 29.7 PG (26-34); Monocytes Absolute Auto 700 /uL (0-900); Monocytes Percent Auto 10.5 % (3-14); Neutrophils Absolute Auto 3600 /uL (1500-7000); Neutrophils Percent Auto 51.5 % (50-75); Platelet Count 304 X10^3/uL (150-400); Red Blood Cell Count 4.84 X10^6/uL (4.0-5.2); Red Cell Distribution Width 13.5 % (11.6-14.8); White Blood Cell Count 6.9 X10^3/uL (4.5-11.0)
[2021-09-06 15:07] LABS: Alanine Aminotransferase 135 IU/L (<35); Albumin 4.8 g/dL (3.5-5.0); Albumin Globulin Ratio 1.3 (1.0-2.8); Alkaline Phosphatase 107 U/L (38-126); Aspartate Aminotransferase 93 IU/L (14-36); BUN Creatinine Ratio 9.2 (6-22); Bilirubin Total 0.4 mg/dL (0.2-1.3); Blood Urea Nitrogen 6 mg/dL (7-17); Calcium 9.3 mg/dL (8.4-10.2); Carbon Dioxide 27 mmol/L (22-32); Chloride 105 mmol/L (98-107); Estimated Glomerular Filt Rate > 60 mL/min (>60); Globulin 3.7 g/dL (1.7-4.1); Glucose 93 mg/dL (70-100); HEMOLYSIS < 15 (0-50); Lipase 80 U/L (23-300); Potassium 3.8 mmol/L (3.4-5.1); Sodium 141 mmol/L (137-145); Total Protein 8.5 g/dL (6.3-8.2)
[2021-09-06 15:33] LABS: Pregnancy Test Urine Negative (Negative)
[2021-09-06 15:36] LABS: Culture Indicated Urine Cult Not Indicated; RBC Urine None Seen (0-5/HPF); Squamous Epithelial Cell Urine 5-10 /HPF (0-5/HPF); WBC Urine None Seen (0-5/HPF)
--- NOTE | 2021-09-06 15:48 | DI.CT.S_ITS ---
PROCEDURE: CT ABDOMEN PELVIS W CON INDICATIONS: severe RLQ pain and epigastric pain with poor appetite TECHNIQUE: After the administration of intravenous contrast, axial sections acquired from the lung bases to the pubic symphysis. Coronal and sagittal reformats were performed. For radiation dose reduction, the following was used: automated exposure control, adjustment of mA and/or kV according to patient size. COMPARISON: [facility], CT, CT ABDOMEN PELVIS W CON, 09/09/2020, 9:56. FINDINGS: Image quality: Excellent. Lung bases: Unremarkable. Heart: No significant findings. ABDOMEN: Liver: Unremarkable. Gallbladder: Is not seen Biliary ducts: Unremarkable. Pancreas: Unremarkable. Spleen: Unremarkable. Adrenal Glands: Unremarkable. Kidneys and Ureters: Unremarkable. Stomach and Bowel: Stomach, small bowel loops, and colon are unremarkable. Normal appendix. Peritoneum: No abnormal intraperitoneal fluid. No free air. Ventral Wall: No hernias. Abdominal Nodes: No retroperitoneal or mesenteric adenopathy by size criteria. Vessels: Aorta and inferior vena cava are normal in size. PELVIS: Pelvic Organs: Unremarkable. Bladder: Unremarkable. Pelvic Nodes: No enlarged lymph nodes. Miscellaneous: No hernias are seen. Bones: Unremarkable. IMPRESSION: 1. No acute process. 2. Normal appendix. Dictated by: Melisa Larson M.D. on 09/06/2021 at 16:12 Approved by: Melisa Larson M.D. on 09/06/2021 at 16:14
--- NOTE | 2021-09-06 15:48 | ED_ITS ---
HPI - Abdominal Pain General Chief Complaint: Abdominal Pain Stated Complaint: ABD pain Time Seen by Provider: 09/06/21 15:38 History of Present Illness HPI narrative: 35-year-old female nonsmoker with history of hypothyroid and diabetes presents with a chief complaint of gradually worsening right lower quadrant and epigastric pain since this morning. She states she has a poor appetite and eating seems to make it worse, additionally she states that any motion makes both locations of pain worse. She has nausea but denies any vomiting, she had a bowel movement this morning that she states was normal. She has had some nasal congestion and runny nose for the past few days but otherwise largely free of complaint. She denies chest pain or shortness of breath. She has had no fever or chills. She denies any dysuria, frequency or urgency. She had similar symptoms about 1 month ago but did not seek treatment. Related Data Home Medications Medication Instructions Recorded Confirmed levothyroxine 75 mcg tablet 75 mcg PO DAILY 10/19/17 03/23/21 metformin 500 mg tablet 500 mg PO DAILY tab 02/22/21 03/23/21 Previous Rx's Medication Instructions Recorded acetaminophen 325 mg capsule 650 mg PO QID PRN #60 cap 03/09/21 (Tylenol) ibuprofen 200 mg tablet 400 mg PO Q6H #60 tab 03/09/21 Allergies Allergy/AdvReac Type Severity Reaction Status Date / Time sertraline [SERTRALINE] Allergy Unknown cant move Verified 03/23/21 11:06 legs Review of Systems Review of Systems Narrative: GENERAL: Denies chills, fatigue, malaise, fever, sweats. HEENT: See HPI RESPIRATORY: Denies dyspnea, cough, wheezing, hemoptysis, sputum. CARDIOVASCULAR: Denies chest pain, palpitations, orthopnea, edema, GASTROINTESTINAL: See HPI : See HPI MUSCULOSKELETAL: denies weakness, joint pain, or bony pain SKIN: Denies rash, skin lesions, or other NEUROLOGIC: Denies weakness, headache, numbness, change in speech, confusion, seizures, incoordination. PSYCHIATRIC: No concerning psychosocial issues. 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 Well-developed patient, in mild distress. HEAD: Atraumatic. Normocephalic. EYES: Pupils equal round and reactive. Extraocular motions intact. No scleral icterus. No injection or drainage. ENT: Nose without bleeding, purulent drainage. Throat without erythema, tonsillar hypertrophy or exudate. Airway patent. NECK: Trachea midline. Non tender CARDIOVASCULAR: Regular rate and rhythm without murmurs, gallops, or rubs. RESPIRATORY: Clear to auscultation. Breath sounds equal bilaterally. No wheezes, rales, or rhonchi. GASTROINTESTINAL: Abdomen soft, tender in the epigastrium and also right lower quadrant, no rebound nondistended. Bowel sounds present but slightly decreased EXTREMITIES: No edema or joint tenderness. BACK: Nontender without deformity or crepitance. No flank tenderness. NEURO: AOx3. SKIN: No rash or erythema of visible areas Initial Vital Signs Initial Vital Signs: Vital Signs Temperature 98.1 F 09/06/21 14:30 Pulse Rate 83 09/06/21 14:30 Respiratory Rate 16 09/06/21 14:30 Blood Pressure 140/90 09/06/21 14:30 Pulse Oximetry 97 09/06/21 14:30 Course Orders Ordered: ED Orders 09/06/21 14:43 Complete Blood Count AUTO DIFF Stat Comprehensive Metabolic Panel Stat Lipase Stat 09/06/21 14:45 Test Urine Stat Urinalysis and Microscopic Stat 09/06/21 15:48 CT abdomen pelvis w con Stat Vital Signs Vital signs: Vital Signs - 8 hr 09/06/21 14:30 Temperature 98.1 F Pulse Rate 83 Respiratory Rate 16 Blood Pressure 140/90 Pulse Oximetry 97 MDM - Abdominal Pain Lab Data Result diagrams: 09/06/21 14:43 09/06/21 14:43 Labs: Lab Results 09/06/21 09/06/21 09/06/21 Range/Units 14:43 14:43 14:45 WBC 6.9 (4.5-11.0) X10^3/uL RBC 4.84 (4.0-5.2) X10^6/uL Hgb 14.4 (12.0-16.0) g/dL Hct 43.1 (36-46) % MCV 89.0 (80-100) fL MCH 29.7 (26-34) PG MCHC 33.4 (30-36) % RDW 13.5 (11.6-14.8) % Plt Count 304 (150-400) X10^3/uL Neut % (Auto) 51.5 (50-75) % Lymph % (Auto) 31.4 (25-40) % Cache % (Auto) 10.5 (3-14) % Eos % (Auto) 6.0 H (2-4) % Baso % (Auto) 0.6 (0-2) % Neut # (Auto) 3600 (0491-2246) /uL Lymph # (Auto) 2200 (4794-4119) /uL Cache # (Auto) 700 (0-900) /uL Eos # (Auto) 400 (0-450) /uL Baso # (Auto) 0 (0-100) /uL Sodium 141 (137-145) mmol/L Potassium 3.8 (3.4-5.1) mmol/L Chloride 105 (98-107) mmol/L Carbon Dioxide 27 (22-32) mmol/L BUN 6 L (7-17) mg/dL Creatinine 0.65 (0.52-1.04) mg/dL Estimated GFR > 60 (>60) mL/min BUN/Creatinine Ratio 9.2 (6-22) Glucose 93 (70-100) mg/dL Calcium 9.3 (8.4-10.2) mg/dL Total Bilirubin 0.4 (0.2-1.3) mg/dL AST 93 H (14-36) IU/L ALT 135 H (<35) IU/L Alkaline Phosphatase 107 (38-126) U/L Total Protein 8.5 H (6.3-8.2) g/dL Albumin 4.8 (3.5-5.0) g/dL Globulin 3.7 (1.7-4.1) g/dL Albumin/Globulin Ratio 1.3 (1.0-2.8) Lipase 80 (23-300) U/L Urine Color Yellow Urine Appearance Clear Urine pH 7.5 (4.5-8.0) Ur Specific [place] 1.010 (1.000-1.035) Urine Protein Negative (Negative) Urine Glucose (UA) Negative (Negative) g/dL Urine Ketones Negative (NEGATIVE) Urine Occult Blood Negative (Negative) Urine Nitrate Negative (Negative) Urine Bilirubin Negative (NEGATIVE) Urine Urobilinogen 1.0 (0.2) E.U./dL Ur Leukocyte Esterase Negative (NEGATIVE) Urine RBC None seen (0-5/HPF) Urine WBC None seen (0-5/HPF) Ur Squamous Epith Cells 5-10 /hpf H (0-5/HPF) Urine Bacteria Not Reportable Ur Culture Indicated? Cult not indicated Urine Test (Negative) 09/06/21 Range/Units 14:45 WBC (4.5-11.0) X10^3/uL RBC (4.0-5.2) X10^6/uL Hgb (12.0-16.0) g/dL Hct (36-46) % MCV (80-100) fL MCH (26-34) PG MCHC (30-36) % RDW (11.6-14.8) % Plt Count (150-400) X10^3/uL Neut % (Auto) (50-75) % Lymph % (Auto) (25-40) % Cache % (Auto) (3-14) % Eos % (Auto) (2-4) % Baso % (Auto) (0-2) % Neut # (Auto) (2476-6376) /uL Lymph # (Auto) (9173-1760) /uL Cache # (Auto) (0-900) /uL Eos # (Auto) (0-450) /uL Baso # (Auto) (0-100) /uL Sodium (137-145) mmol/L Potassium (3.4-5.1) mmol/L Chloride (98-107) mmol/L Carbon Dioxide (22-32) mmol/L BUN (7-17) mg/dL Creatinine (0.52-1.04) mg/dL Estimated GFR (>60) mL/min BUN/Creatinine Ratio (6-22) Glucose (70-100) mg/dL Calcium (8.4-10.2) mg/dL Total Bilirubin (0.2-1.3) mg/dL AST (14-36) IU/L ALT (<35) IU/L Alkaline Phosphatase (38-126) U/L Total Protein (6.3-8.2) g/dL Albumin (3.5-5.0) g/dL Globulin (1.7-4.1) g/dL Albumin/Globulin Ratio (1.0-2.8) Lipase (23-300) U/L Urine Color Urine Appearance Urine pH (4.5-8.0) Ur Specific [place] (1.000-1.035) Urine Protein (Negative) Urine Glucose (UA) (Negative) g/dL Urine Ketones (NEGATIVE) Urine Occult Blood (Negative) Urine Nitrate (Negative) Urine Bilirubin (NEGATIVE) Urine Urobilinogen (0.2) E.U./dL Ur Leukocyte Esterase (NEGATIVE) Urine RBC (0-5/HPF) Urine WBC (0-5/HPF) Ur Squamous Epith Cells (0-5/HPF) Urine Bacteria Ur Culture Indicated? Urine Test Negative (Negative) Imaging Data CT scan - abdomen/pelvis: Radiologist's Impression: Launch?Image [place] [id number] CT Scan Report Signed Patient: Lesia Godinez MR#: [id number] : 1985 Acct:[id number] Age/Sex: 35 / F Date of Service: 09/06/21 Loc: ED Accession Number: [id number] ?? Procedure: CT abdomen pelvis w con Ordering Provider: Torres Easton D.O. PROCEDURE:? CT ABDOMEN PELVIS W CON ? INDICATIONS:? severe RLQ pain and epigastric pain with poor appetite ? TECHNIQUE:? After the administration of intravenous contrast, axial sections acquired from the lung bases to the pubic symphysis.? Coronal and sagittal reformats were performed.? For radiation dose reduction, the following was used:? automated exposure control, adjustment of mA and/or kV according to patient size.? ? COMPARISON:? [facility], CT, CT ABDOMEN PELVIS W CON, 09/09/2020, 9:56. ? FINDINGS:? Image quality:? Excellent.? ? Lung bases:? Unremarkable. Heart:? No significant findings. ? ABDOMEN: Liver:? Unremarkable.? ? Gallbladder:? Is not seen? ? Biliary ducts:? Unremarkable.? ? Pancreas:? Unremarkable.? ? Spleen:? Unremarkable.? ? Adrenal Glands:? Unremarkable.? ? Kidneys and Ureters:? Unremarkable.? ? ? Stomach and Bowel:? Stomach, small bowel loops, and colon are unremarkable.? Normal appendix. Peritoneum:? No abnormal intraperitoneal fluid.? No free air.? ? Ventral Wall: ? No hernias.? Abdominal Nodes:? No retroperitoneal or mesenteric adenopathy by size criteria.? Vessels:? Aorta and inferior vena cava are normal in size.? ? PELVIS: Pelvic Organs:? Unremarkable.? ? Bladder:? Unremarkable.? ? Pelvic Nodes: No enlarged lymph nodes.? Miscellaneous: No hernias are seen. ? ? ? Bones:? Unremarkable.? IMPRESSION:? 1. No acute process. 2. Normal appendix.? ? ? Dictated by: Melisa Larson M.D. on 09/06/2021 at 16:12 ? ? Approved by: Melisa Larson M.D. on 09/06/2021 at 16:14 ? MDM Narrative Medical decision making narrative: Multiple etiologies for patient's symptoms considered including: [Bowel obstruction versus appendicitis versus colitis versus kidney stone versus other Patient's symptoms improved over duration of stay with above-stated therapies. She does not want prescriptions for nausea or pain medications Findings and discharge diagnosis discussed with patient/family followed by verbalization of understanding Return precautions discussed with patient/family whom verbalize understanding. Discharge Plan Departure Patient Disposition: Home Clinical Impression: Abdominal pain Instructions: DI for Abdominal Pain-Adult Activity Restrictions/Additional Instructions: *You have been diagnosed with [abdominal pain. As we discussed, your labs and imaging are very reassuring and there is no evidence of a surgical problem such as appendicitis or bowel obstruction. *What to do: *Please continue to take your regular medications as directed. [ ] New medication prescriptions sent to your pharmacy: [ ] [ ] New medication written as a paper prescription [x ] No new medications given *Please follow up with your primary care provider in 2-3 days, call for an appointment. Let them know you were seen in the Emergency Department and that we ask that you be seen in follow up. We will electronically transmit a record of today's note if your PCP is in our system * a clear liquid diet for the next few days can help your belly calm down, but as we discussed it will be very important to closely follow which her sugars are doing and address them appropriately. *If you do not have a primary care provider please contact the [facility] Resource line at [phone]. They will ask some questions about your medical history and help get you set up with a doctor in the community. *Return to Emergency Department if you should have any new, worsening or concerning symptoms, such as [fever greater than 101 F, shaking chills, worsening pain, persistent vomiting or other bothersome symptoms] Prescriptions: No Action levothyroxine 75 mcg tablet 75 mcg PO DAILY 0RF metformin 500 mg tablet 500 mg PO DAILY 0RF ibuprofen 200 mg tablet 400 mg PO Q6H Qty: 60 0RF acetaminophen [Tylenol] 325 mg capsule 650 mg PO QID PRN (Reason: pain) Qty: 60 0RF Referrals: Bibi Clifton MD [Primary Care Provider] -
[2021-09-06 17:14] VITALS: BP 123/73; PULSE 67; RESP 18; O2SAT 100
== END 2021-09-06 17:17 | disposition home or self-care (01) ==
PROVIDERS: Emergency Provider Emergency Medicine; Family Provider Family Medicine; PCP Family Medicine
DX: R10.31 Right lower quadrant pain (principal); R10.13 Epigastric pain
CPT/HCPCS: 36415; 74177; 80053; 81001; 81025; 83690; 85025; 99284; Q9967